=== PATIENT | female | born 1935 | race Caucasian/White ===

== ENCOUNTER → 2017-01-22 | Outpatient (CLI) | payer OTHER, MEDICARE ==
[~2017-01-22] MED LIST: AMOX500T3 PO; ASPI325T39 PO; BIOT1CAP8 PO; BISA-16 PO; BISA1TAB15 RE; CALTRATE 600+D PO; CARB25TA12 PO; CLB/200 PO; CLON1TAB3 PO; CLOTCRE33 TOP; DESM0.2T2 PO; DOMPERIDONE 20 MG PO; ESTR1CRE PV; HYDR12.55 PO; LINA1CAP2 PO; LOPE-5 PO; LVNIS30 SQ; MRLP17 PO; MULTTAB58 PO; NYST80OI TOP; OMEP20CA9 PO; ONDA8TAB62 SL; POLY1DRO OPB; RALO60TA12 PO; SERT50TA PO; SIME1CHW12 PO; TRET0.023 TOP; WHEAPOW13 PO; ZNT/150 PO; ZOLP10TA PO
[2017-01-22 10:00] LABS: BLOOD UREA NITROGEN 17 mg/dl (7-18); BUN/CREATININE RATIO 19.3 (10-20); CALCIUM 8.5 mg/dl (8.5-10.1); CARBON DIOXIDE 25 mmol/L (21-32); CHLORIDE 111 mmol/L (98-107); GLUCOSE 74 mg/dl (70-99); POTASSIUM 4.5 mmol/L (3.5-5.1); SODIUM 143 mmol/L (136-145)
== END ==
LOC: C.LABFOXAN 09:09
PROVIDERS: ATTEND Internal Medicine
DX: E87.6 Hypokalemia (principal)

== ENCOUNTER → 2017-05-27 | Outpatient (CLI) | payer OTHER, MEDICARE ==
[~2017-05-27] MED LIST changes: -RALO60TA12 PO; +RALO60TA30 PO
[2017-05-27 09:18] LABS: BLOOD UREA NITROGEN 23 mg/dl (7-18); BUN/CREATININE RATIO 22.6 (10-20); CALCIUM 8.5 mg/dl (8.5-10.1); CARBON DIOXIDE 22 mmol/L (21-32); CHLORIDE 112 mmol/L (98-107); GLUCOSE 75 mg/dl (70-99); POTASSIUM 4.7 mmol/L (3.5-5.1); SODIUM 143 mmol/L (136-145)
== END ==
LOC: C.LABFOXAN 08:43
PROVIDERS: ATTEND Internal Medicine
DX: E87.6 Hypokalemia (principal)

== ENCOUNTER → 2017-08-16 | Outpatient (CLI) | payer OTHER, MEDICARE ==
[~2017-08-16] MED LIST changes: +DESM0.2T17 PO; -DESM0.2T2 PO
[2017-08-16 08:46] LABS: HEMATOCRIT 36.1 % (37-47); HEMOGLOBIN 11.7 g/dL (12.0-16.0); MEAN CELL VOLUME 98.9 fL (80-100); MEAN CORPUSCULAR HEMOGLOBIN 32.1 pg (25-34); MEAN CORPUSCULAR HGB CONC 32.4 g/dl (32-36); MEAN PLATELET VOLUME 10.1 fL (7.4-10.4); PLATELET COUNT 186 K/uL (130-400); RED CELL DISTRIBUTION WIDTH CV 13.8 % (11.5-14.5); RED CELL DISTRIBUTION WIDTH SD 49.4 fL (36.4-46.3); WHITE BLOOD COUNT 6.15 K/uL (4.8-10.8)
[2017-08-16 08:52] LABS: BLOOD UREA NITROGEN 19 mg/dl (7-18); CALCIUM 8.4 mg/dl (8.5-10.1); CARBON DIOXIDE 25 mmol/L (21-32); CREATININE 0.94 mg/dl (0.60-1.20); GLUCOSE 79 mg/dl (70-99); POTASSIUM 4.4 mmol/L (3.5-5.1); SODIUM 142 mmol/L (136-145)
== END ==
LOC: C.LABFOXAN 08:12
PROVIDERS: ATTEND Internal Medicine
DX: R06.02 Shortness of breath (principal)

== ENCOUNTER → 2017-09-20 | Outpatient (CLI) | payer OTHER, MEDICARE ==
[2017-09-20 08:37] LABS: BLOOD UREA NITROGEN 24 mg/dl (7-18); CALCIUM 8.5 mg/dl (8.5-10.1); CARBON DIOXIDE 22 mmol/L (21-32); CREATININE 1.03 mg/dl (0.60-1.20); GLUCOSE 85 mg/dl (70-99); POTASSIUM 4.5 mmol/L (3.5-5.1); SODIUM 143 mmol/L (136-145)
== END | disposition home or self-care (01) ==
LOC: C.LABFOXAN 07:34
PROVIDERS: ATTEND Internal Medicine
DX: E87.6 Hypokalemia (principal)

== ENCOUNTER → 2017-10-07 | Outpatient (CLI) | payer OTHER, MEDICARE ==
[2017-10-07 15:28] LABS: BASO % 0.3 %; BASO ABS # 0.02 K/uL (0-0.2); EOS % 1.9 %; EOS ABS # 0.12 K/uL (0-0.5); HEMATOCRIT 39.9 % (37-47); IG# 0.01 K/uL (0.00-0.02); LYMPH % 26.5 %; LYMPH ABS # 1.64 K/uL (1.2-3.4); MEAN CELL VOLUME 98.3 fL (80-100); MEAN CORPUSCULAR HGB CONC 32.6 g/dl (32-36); MEAN PLATELET VOLUME 10.7 fL (7.4-10.4); MONO % 9.5 %; MONO ABS # 0.59 K/uL (0.11-0.59); NEUT % 61.6 %; NEUT ABS # 3.81 K/uL (1.4-6.5); PLATELET COUNT 173 K/uL (130-400); RED CELL DISTRIBUTION WIDTH CV 13.8 % (11.5-14.5); RED CELL DISTRIBUTION WIDTH SD 49.4 fL (36.4-46.3); WHITE BLOOD COUNT 6.19 K/uL (4.8-10.8)
[2017-10-07 15:40] LABS: BLOOD UREA NITROGEN 21 mg/dl (7-18); CALCIUM 8.3 mg/dl (8.5-10.1); CARBON DIOXIDE 23 mmol/L (21-32); CREATININE 1.13 mg/dl (0.60-1.20); GLUCOSE 75 mg/dl (70-99); POTASSIUM 4.4 mmol/L (3.5-5.1); SODIUM 144 mmol/L (136-145)
== END ==
LOC: C.LABFOXAN 14:46
PROVIDERS: ATTEND Internal Medicine
DX: R53.81 Other malaise (principal)

== ENCOUNTER 2017-11-05 10:07 | Inpatient (IN) | payer OTHER, MEDICARE ==
[~2017-11-05] VITALS: Ht 165.1 cm; Wt 74.6 kg
--- NOTE | 2017-11-05 10:28 | EMERGENCY ROOM VISIT NOTE ---
History Report prepared by John: Clayton Jessica Under the Supervision of: Dr. Alex Lin M.D. First contact with patient: 10:12 Chief Complaint: HYPOTENSION Stated Complaint: SYNCOPE History of Present Illness The patient is an 82 year old female who presents to the Emergency Room from [facility] with concerns over hypotensive blood pressure readings. The patient's significant other at bedside states that he was called at 0930 when the hypotensive pressures were noticed. He notes that the patient is normally more conversive than she currently is. Nursing staff notes that [facility] states that she was unusually weak today, and incontinent of her urine. Source of History: spouse/significant other Onset: 0930, 1 hour ago Position: other (Generalized) Quality: other (Weakness) Associated Symptoms: + urinary symptoms (incontinent of urine. ) Note: Patient's notes that she is normally more conversive. Review of Systems See HPI for pertinent positives & negatives. A total of 10 systems reviewed and were otherwise negative. Past Medical & Surgical Medical Problems: (1) Benign hypertension (2) Bronchitis (3) Gastroparesis (4) Heart murmur (5) Osteoarthritis (6) Parkinson's disease (7) UTI (urinary tract infection) Family History Omitted secondary to age. Social History Smoking Status: Never Smoker Alcohol Use: none Drug Use: none Marital Status: Housing Status: assisted living Occupation Status: retired Current/Historical Medications Scheduled Amoxicillin (Amoxil), 500 MG PO UD Bisacodyl (Dulcolax), 5 MG PO Q2D Buspirone HCl (Buspirone HCl), 15 MG PO DAILY Buspirone Hcl (Buspirone Hcl), 7.5 MG PO QAM Carbidopa/Levodopa (Sinemet 25MG/100MG), 1 TAB PO TID Clonazepam (Klonopin), 0.5 MG PO TID Clonazepam (Klonopin), 0.25 MG PO DAILY Entacapone (Comtan), 100 MG PO QID Estrogens, Conjugated (Premarin), 1 APPLN HS Gabapentin (Neurontin), 200 MG PO TID Eqvbkmsc-Yfoywoufqfdf-Bcqhmyha (Artificial Tears), 1 APPLN OPB HS Linaclotide (Linzess), 290 MCG PO QAM Lisinopril (Zestril), 2.5 MG PO QPM Melatonin (Melatonin Maximum Strengt), 10 MG PO HS Mirtazapine Soltab (Remeron Soltab), 30 MG PO HS Polyethylene Glycol-Propylene (Systane Ultra), 1 DROPS OPB QID Potassium Chloride (Micro-K Ext Rel), 20 MEQ PO BID Raloxifene Hcl (Evista), 60 MG PO DAILY Ranitidine Hcl (Zantac), 150 MG PO BID Sennosides (Senexon), 8.6 MG PO BID Venlafaxine Hcl (Venlafaxine Hcl Er), 225 MG PO QAM White Petrolatum-Mineral Oil (Genteal Tears Night-Time), 1 APPLN OPB HS Zolpidem Tartrate (Ambien), 2.5 MG PO HS Scheduled PRN Acetaminophen (Tylenol), 500 MG PO QID PRN for Pain Bisacodyl (Dulcolax), 1 SUPP ME Q2D PRN for Constipation Magnesium Hydroxide (Milk of Magnesia 400 mg/5Ml), 30 ML PO Q2D PRN for Constipation Oxycodone Hcl (Oxycodone Hcl), 5 MG PO Q4 PRN for Pain Polyethylene Glycol 3350 (Miralax), 17 GM PO Q24H PRN for Constipation Ropinirole (Requip), 0.25 MG PO HS PRN for restless legs Sodium Phosphate/Biphosphate (Fleet Enema), 1 EA ME DAILY PRN for Constipation Allergies Coded Allergies: Amantadine (Verified Allergy, Intermediate, NEURO COMPLICATIONS, 09/12/13) Trihexyphenidyl (Verified Adverse Reaction, Mild, NAUSEA, 11/04/10) Promethazine (Verified Adverse Reaction, Unknown, MENTAL STATUS CHANGE, 11/04/10) Physical Exam Vital Signs Date Time Temp Pulse Resp B/P (MAP) Pulse Ox O2 Delivery O2 Flow Rate FiO2 11/05/17 12:46 65 19 115/74 97 Room Air 11/05/17 11:04 61 18 107/59 96 Nasal Cannula 3.0 11/05/17 10:47 59 108/55 60 100/60 11/05/17 10:31 93 Nasal Cannula 3.0 11/05/17 10:19 92 Room Air 11/05/17 10:19 36.4 62 20 102/49 88 Room Air 11/05/17 10:18 62 Physical Exam GENERAL: Awake, well-appearing, in no acute distress HENT: Normocephalic, atraumatic. Oropharynx unremarkable. EYES: Normal conjunctiva. Sclera non-icteric. NECK: Supple. No nuchal rigidity. FROM. No JVD. RESPIRATORY: Clear to auscultation. CARDIAC: Regular rate, normal rhythm. Extremities warm and well perfused. Pulses equal. ABDOMEN: Soft, non-distended. No tenderness to palpation. No rebound or guarding. No masses. RECTAL: Deferred. MUSCULOSKELETAL: Chest examination reveals no tenderness. The back is symmetrical on inspection without obvious abnormality. There is no CVA tenderness to palpation. No joint edema. LOWER EXTREMITIES: Calves are equal size bilaterally and non-tender. No edema. No discoloration. NEURO: Normal sensorium. No sensory or motor deficits noted. SKIN: No rash or jaundice noted. Medical Decision & Procedures ER Provider Diagnostic Interpretation: Radiology results as stated below per my review and radiologist interpretation: (CHEST FOR PE) ANGIO WITH CT DOSE: 241.78 mGy.cm HISTORY: 82 years-old Female with . Acute hypoxia and hypotension with shortness of breath TECHNIQUE: Multiple CTA images of the chest were obtained after the intravenous administration of 93 ml Optiray 320. Coronal and sagittal MIPS were obtained from the axial data set and were submitted for review. A dose lowering technique was utilized adhering to the principles of ALARA. COMPARISON: Chest radiograph of same day FINDINGS: CTA: Mild multichamber cardiac enlargement. Thoracic aorta is normal in course and caliber without aneurysm or dissection. The imaged great vessels appear patent. The left vertebral artery emanates strictly from the aortic arch. Moderate atherosclerosis of the aorta. The pulmonary arterial tree is opacified to level of the subsegmental branches and demonstrates no focal filling defects to suggest pulmonary thromboembolic disease. CT CHEST: Mildly heterogeneous thyroid without dominant nodule. Prominent lower right hilar lymph nodes measure up to 8 mm in short axis, likely physiologic. No bulky lymph nodes by CT size criteria. No pneumothorax or pleural effusion. Dependent groundglass and subsegmental consolidative opacities, right greater the left suggest atelectasis. Moderate bilateral bronchial wall thickening is noted with mild intralobular septal thickening throughout the right upper lobe. Subsegmental pleural-parenchymal scarring/atelectasis of the basal right lower lobe. There are no suspicious pulmonary nodules or masses identified. Central airways appear patent. Evaluation of the lungs is limited secondary to respiratory motion. Hepatic steatosis. No acute process of the imaged upper abdomen. Soft tissues are unremarkable. Anterior fusion changes of the lower cervical spine. Levoscoliosis of the thoracic spine with multilevel intervertebral disc space narrowing, endplate spurring and facet arthrosis. IMPRESSION: 1. No acute aortic pathology or evidence of pulmonary thromboembolic disease. 2. Mild intralobular septal thickening throughout the right upper lobe may reflect mild asymmetric pulmonary edema. Moderate bronchial wall thickening suggests congestive changes or bronchitis. 3. Subsegmental bibasilar atelectasis without focal airspace consolidation to suggest pneumonia. 4. Hepatic steatosis. The above report was generated using voice recognition software. It may contain grammatical, syntax or spelling errors. Electronically signed by: Hudson Virgen M.D. 11/05/2017 12:43 PM Dictated Date/Time: 11/05/2017 12:35 PM CHEST ONE VIEW PORTABLE CLINICAL HISTORY: 82 years-old Female presenting with Pt c/o SOB. TECHNIQUE: Portable upright AP view of the chest was obtained. COMPARISON: 09/12/2013. FINDINGS: The patient is slightly [place] rotated. Allowing for this, atherosclerosis and prominence of the thoracic aorta. Cardiac silhouette top normal in size. Mild elevation of the bilateral hemidiaphragms. No focal opacity. No large effusion or pneumothorax. Osseous structures normal. Foreign body projects over the epigastrium, likely external to the patient. IMPRESSION: 1. No acute cardiopulmonary disease. Electronically signed by: Brigido Dey M.D. 11/05/2017 11:01 AM Dictated Date/Time: 11/05/2017 11:00 AM HEAD WITHOUT CONTRAST (CT) CLINICAL HISTORY: 82 years-old Female with Pt c/o AMS. Acute altered mental status with syncope TECHNIQUE: Multiple axial CT images of the head were obtained without contrast. A dose lowering technique was utilized adhering to the principles of ALARA. CT DOSE: 537.48 mGy.cm COMPARISON: CT head 09/12/2013. FINDINGS: No acute intracranial hemorrhage, midline shift, intracranial mass, hydrocephalus, territorial ischemia or abnormal extra-axial collection. Mild atrophy with mild chronic microvascular ischemic changes. Senescent calcifications of the basal ganglia. The calvarium is intact. Mastoid air cells and middle ear cavities are clear. Mild mucosal thickening about the maxillary and ethmoid sinuses. Soft tissues and orbits are unremarkable. Prior bilateral cataract repair. IMPRESSION: No acute intracranial abnormality. The above report was generated using voice recognition software. It may contain grammatical, syntax or spelling errors. Electronically signed by: Hudson Virgen M.D. 11/05/2017 11:29 AM Dictated Date/Time: 11/05/2017 11:22 AM Laboratory Results 11/05/17 10:50 Red Blood Count 3.61, Mean Corpuscular Volume 97.2, Mean Corpuscular Hemoglobin 31.9, Mean Corpuscular Hemoglobin Concent 32.8, Mean Platelet Volume 10.2, Neutrophils (%) (Auto) 71.5, Lymphocytes (%) (Auto) 19.2, Monocytes (%) (Auto) 6.9, Eosinophils (%) (Auto) 1.8, Basophils (%) (Auto) 0.4, Neutrophils # (Auto) 3.91, Lymphocytes # (Auto) 1.05, Monocytes # (Auto) 0.38, Eosinophils # (Auto) 0.10, Basophils # (Auto) 0.02 11/05/17 10:50 Test 11/05/17 10:50 11/05/17 11:55 11/05/17 13:50 White Blood Count 5.47 K/uL (4.8-10.8) Red Blood Count 3.61 M/uL (4.2-5.4) Hemoglobin 11.5 g/dL (12.0-16.0) Hematocrit 35.1 % (37-47) Mean Corpuscular Volume 97.2 fL (80-100) Mean Corpuscular Hemoglobin 31.9 pg (25-34) Mean Corpuscular Hemoglobin Concent 32.8 g/dl (32-36) Platelet Count 132 K/uL (130-400) Mean Platelet Volume 10.2 fL (7.4-10.4) Neutrophils (%) (Auto) 71.5 % Lymphocytes (%) (Auto) 19.2 % Monocytes (%) (Auto) 6.9 % Eosinophils (%) (Auto) 1.8 % Basophils (%) (Auto) 0.4 % Neutrophils # (Auto) 3.91 K/uL (1.4-6.5) Lymphocytes # (Auto) 1.05 K/uL (1.2-3.4) Monocytes # (Auto) 0.38 K/uL (0.11-0.59) Eosinophils # (Auto) 0.10 K/uL (0-0.5) Basophils # (Auto) 0.02 K/uL (0-0.2) RDW Standard Deviation 50.1 fL (36.4-46.3) RDW Coefficient of Variation 14.0 % (11.5-14.5) Immature Granulocyte % (Auto) 0.2 % Immature Granulocyte # (Auto) 0.01 K/uL (0.00-0.02) D-Dimer 560 ug/L FEU (0-500) Anion Gap 6.0 mmol/L (3-11) Est Creatinine Clear Calc Drug Dose 41.5 ml/min Estimated GFR () 56.0 Estimated GFR (Non- 48.3 BUN/Creatinine Ratio 19.9 (10-20) Calcium Level 7.6 mg/dl (8.5-10.1) Total Bilirubin 0.3 mg/dl (0.2-1) Direct Bilirubin < 0.1 mg/dl (0-0.2) Aspartate Amino Transf (AST/SGOT) 15 U/L (15-37) Alanine Aminotransferase (ALT/SGPT) 7 U/L (12-78) Alkaline Phosphatase 98 U/L (45-117) Total Creatine Kinase 42 U/L (26-192) Creatine Kinase MB 1.1 ng/ml (0.5-3.6) Creatine Kinase MB Ratio 2.6 (0-3.0) Troponin I < 0.015 ng/ml (0-0.045) Total Protein 5.3 gm/dl (6.4-8.2) Albumin 2.8 gm/dl (3.4-5.0) Thyroid Stimulating Hormone (TSH) 2.440 uIu/ml (0.300-4.500) Urine Color DK YELLOW Urine Appearance CLOUDY (CLEAR) Urine pH 5.5 (4.5-7.5) Urine Specific [place] 1.019 (1.000-1.030) Urine Protein NEG (NEG) Urine Glucose (UA) NEG (NEG) Urine Ketones NEG (NEG) Urine Occult Blood NEG (NEG) Urine Nitrite NEG (NEG) Urine Bilirubin NEG (NEG) Urine Urobilinogen NEG (NEG) Urine Leukocyte Esterase TRACE (NEG) Urine WBC (Auto) 1-5 /hpf (0-5) Urine RBC (Auto) 0-4 /hpf (0-4) Urine Hyaline Casts (Auto) 1-5 /lpf (0-5) Urine Epithelial Cells (Auto) 0-5 /lpf (0-5) Urine Bacteria (Auto) 4+ (NEG) Labs reviewed by ED physician. Medications Administered Medications (Trade) Dose Ordered Sig/Omid Route Start Time Stop Time Status Last Admin Dose Admin Sodium Chloride 1,000 ml @ 999 mls/hr Q1H1M STAT IV 11/05/17 10:35 11/05/17 11:35 DC 11/05/17 11:00 999 MLS/HR Albuterol Sulfate (Ventolin 0.083% 2.5MG/3ML Neb) 2.5 mg NOW STAT INH 11/05/17 11:39 11/05/17 11:40 DC 11/05/17 12:51 2.5 MG Albuterol Sulfate (Ventolin 0.083% 2.5MG/3ML Neb) 2.5 mg NOW STAT INH 11/05/17 11:39 11/05/17 11:40 DC 11/05/17 12:52 2.5 MG Albuterol Sulfate (Ventolin 0.083% 2.5MG/3ML Neb) 2.5 mg NOW STAT INH 11/05/17 12:43 11/05/17 12:44 DC 11/05/17 13:30 2.5 MG Sodium Chloride 1,000 ml @ 999 mls/hr Q1H1M STAT IV 11/05/17 12:45 11/05/17 13:50 DC 11/05/17 11:00 999 MLS/HR Methylprednisolone Sodium Succinate (Solu-Medrol IV) 60 mg NOW STAT IV 11/05/17 12:59 11/05/17 13:00 DC 11/05/17 13:30 60 MG ECG Per My Interpretation Indication: weakness, other (Hypotension) Rate (beats per minute): 61 Rhythm: sinus rhythm Findings: 1st degree AV block, other (No WILBERT/STD) ED Course 1021: Past medical records reviewed. The patient was evaluated in room B5. A complete history and physical examination was performed. 1035: Ordered Sodium Chloride 1000 mL @ 999 mL/hr IV. 1139: Ordered Albuterol Sulfate 2.5 mg INH, Albuterol Sulfate 2.5 mg INH. 1243: Ordered Albuterol Sulfate 2.5 mg INH. 1245: Ordered Sodium Chloride 1000 mL @ 999 mL/hr IV. 1259: Solu-Medrol 60 mg IV. 1321: I discussed the case with [facility]. She will evaluate the patient for further treatment. Medical Decision Differential diagnosis: Etiologies such as metabolic, infection, hypo/hyperglycemia, electrolyte abnormalities, cardiac sources, intracerebral event, toxicologic, neurologic, as well as others were entertained. This is an 82-year-old female who presents the emergency department complaining of hypotension as well as hypoxia. The patient was sent in by her halfway. Upon arrival to the emergency department the patient is hypotensive. She was given a normal saline bolus. Because of both the hypotension and the hypoxia and d-dimer was obtained. This was elevated so therefore the patient was sent for CAT scan of the chest. This did not show any evidence of a PE. She was given multiple breathing treatments here in the emergency department along with Solu-Medrol. Because the patient continued to need oxygen and remained hypotensive I did discuss the case with the hospitalist service who agreed to admit the patient. Patient and family were in agreement with the treatment plan. Medication Reconcilliation Current Medication List: was personally reviewed by me Blood Pressure Screening Patient's blood pressure: Low blood pressure Referred to hospitalist. Consults Time Called: 1256 Consulting Physician: Juliette West PA-C Returned Call: 1321 I discussed the case with Juliette West PA-C. She will evaluate the patient for further treatment. Impression Primary Impression: Hypotension Additional Impression: Hypoxia Scribe Attestation The scribe's documentation has been prepared under my direction and personally reviewed by me in its entirety. I confirm that the note above accurately reflects all work, treatment, procedures, and medical decision making performed by me. Departure Information Dispostion Being Evaluated By Hospitalist Referrals Ana Edwards (PCP) Patient Instructions My [facility] Problem Qualifiers Primary Impression: Hypotension Hypotension type: unspecified hypotension type Qualified Codes: I95.9 - Hypotension, unspecified
[2017-11-05] MEDS ORDERED: SODIUM CHLORIDE 0.9% 1000ML 1,000 ML IV STA ×2 (10:35→12:45)
--- NOTE | 2017-11-05 11:02 | DIAGNOSTIC IMAGING REPORT ---
CHEST ONE VIEW PORTABLE CLINICAL HISTORY: 82 years-old Female presenting with Pt c/o SOB. TECHNIQUE: Portable upright AP view of the chest was obtained. COMPARISON: 09/12/2013. FINDINGS: The patient is slightly [place] rotated. Allowing for this, atherosclerosis and prominence of the thoracic aorta. Cardiac silhouette top normal in size. Mild elevation of the bilateral hemidiaphragms. No focal opacity. No large effusion or pneumothorax. Osseous structures normal. Foreign body projects over the epigastrium, likely external to the patient. IMPRESSION: 1. No acute cardiopulmonary disease. Electronically signed by: Brigido Dey M.D. 11/05/2017 11:01 AM Dictated Date/Time: 11/05/2017 11:00 AM
[2017-11-05 11:21] LABS: BASO % 0.4 %; BASO ABS # 0.02 K/uL (0-0.2); EOS % 1.8 %; HEMATOCRIT 35.1 % (37-47); HEMOGLOBIN 11.5 g/dL (12.0-16.0); IG# 0.01 K/uL (0.00-0.02); LYMPH % 19.2 %; LYMPH ABS # 1.05 K/uL (1.2-3.4); MEAN CELL VOLUME 97.2 fL (80-100); MEAN CORPUSCULAR HEMOGLOBIN 31.9 pg (25-34); MEAN CORPUSCULAR HGB CONC 32.8 g/dl (32-36); MEAN PLATELET VOLUME 10.2 fL (7.4-10.4); MONO % 6.9 %; MONO ABS # 0.38 K/uL (0.11-0.59); NEUT % 71.5 %; NEUT ABS # 3.91 K/uL (1.4-6.5); PLATELET COUNT 132 K/uL (130-400); RED CELL DISTRIBUTION WIDTH SD 50.1 fL (36.4-46.3); WHITE BLOOD COUNT 5.47 K/uL (4.8-10.8)
--- NOTE | 2017-11-05 11:30 | DIAGNOSTIC IMAGING REPORT ---
HEAD WITHOUT CONTRAST (CT) CLINICAL HISTORY: 82 years-old Female with Pt c/o AMS. Acute altered mental status with syncope TECHNIQUE: Multiple axial CT images of the head were obtained without contrast. A dose lowering technique was utilized adhering to the principles of ALARA. CT DOSE: 537.48 mGy.cm COMPARISON: CT head 09/12/2013. FINDINGS: No acute intracranial hemorrhage, midline shift, intracranial mass, hydrocephalus, territorial ischemia or abnormal extra-axial collection. Mild atrophy with mild chronic microvascular ischemic changes. Senescent calcifications of the basal ganglia. The calvarium is intact. Mastoid air cells and middle ear cavities are clear. Mild mucosal thickening about the maxillary and ethmoid sinuses. Soft tissues and orbits are unremarkable. Prior bilateral cataract repair. IMPRESSION: No acute intracranial abnormality. The above report was generated using voice recognition software. It may contain grammatical, syntax or spelling errors. Electronically signed by: Hudson Virgen M.D. 11/05/2017 11:29 AM Dictated Date/Time: 11/05/2017 11:22 AM
[2017-11-05 11:39] LABS: ALBUMIN 2.8 gm/dl (3.4-5.0); ALT/SGPT 7 U/L (12-78); AST/SGOT 15 U/L (15-37); BLOOD UREA NITROGEN 21 mg/dl (7-18); CALCIUM 7.6 mg/dl (8.5-10.1); CARBON DIOXIDE 23 mmol/L (21-32); CREATININE 1.07 mg/dl (0.60-1.20); GLUCOSE 93 mg/dl (70-99); SODIUM 145 mmol/L (136-145)
[2017-11-05] MEDS ORDERED: ALBUTEROL 0.083% NEBU SOLN 3 ML VIAL INH STA ×3 (11:39→12:43)
[2017-11-05] MEDS ORDERED: OPTIRAY 320 IV PRN (11:45)
[2017-11-05 11:49] LABS: ALKALINE PHOSPHATASE 98 U/L (45-117); CKMB 1.1 ng/ml (0.5-3.6); TOTAL PROTEIN 5.3 gm/dl (6.4-8.2)
[2017-11-05] MEDS ORDERED: WHITOIN3 OPB (12:40)
[2017-11-05] MEDS ORDERED: MIRT30TA2 PO (12:40)
[2017-11-05] MEDS ORDERED: VENL225T27 PO (12:40)
[2017-11-05] MEDS ORDERED: ACET-1256 PO (12:40)
[2017-11-05] MEDS ORDERED: ZOLP5TAB PO (12:40)
[2017-11-05] MEDS ORDERED: PRMVC (12:40)
[2017-11-05] MEDS ORDERED: BSP15 PO (12:40)
[2017-11-05] MEDS ORDERED: GLYCDRO6 OPB (12:40)
[2017-11-05] MEDS ORDERED: MAGNSUS73 PO (12:40)
[2017-11-05] MEDS ORDERED: CLON0.5T3 PO (12:40)
[2017-11-05] MEDS ORDERED: BISA-16 PO (12:40)
[2017-11-05] MEDS ORDERED: SODIENE PR (12:40)
[2017-11-05] MEDS ORDERED: ROPI0.25 PO (12:40)
[2017-11-05] MEDS ORDERED: GABA100C13 PO (12:40)
[2017-11-05] MEDS ORDERED: SENN8.6T9 PO (12:40)
[2017-11-05] MEDS ORDERED: BISA10SU38 PR (12:40)
[2017-11-05] MEDS ORDERED: OXYC1CAP5 PO (12:40)
[2017-11-05] MEDS ORDERED: LISI-789 PO (12:40)
[2017-11-05] MEDS ORDERED: POTA10CA28 PO (12:40)
[2017-11-05] MEDS ORDERED: MELATAB2 PO (12:40)
[2017-11-05] MEDS ORDERED: POLY335019 PO (12:40)
[2017-11-05] MEDS ORDERED: ENTA200T PO (12:40)
[2017-11-05] MEDS ORDERED: POLY1SOL6 OPB (12:40)
[2017-11-05] MEDS ORDERED: CARB25TA12 PO (12:40)
[2017-11-05] MEDS ORDERED: BUSP1TAB46 PO (12:40)
--- NOTE | 2017-11-05 12:44 | DIAGNOSTIC IMAGING REPORT ---
(CHEST FOR PE) ANGIO WITH CT DOSE: 241.78 mGy.cm HISTORY: 82 years-old Female with . Acute hypoxia and hypotension with shortness of breath TECHNIQUE: Multiple CTA images of the chest were obtained after the intravenous administration of 93 ml Optiray 320. Coronal and sagittal MIPS were obtained from the axial data set and were submitted for review. A dose lowering technique was utilized adhering to the principles of ALARA. COMPARISON: Chest radiograph of same day FINDINGS: CTA: Mild multichamber cardiac enlargement. Thoracic aorta is normal in course and caliber without aneurysm or dissection. The imaged great vessels appear patent. The left vertebral artery emanates strictly from the aortic arch. Moderate atherosclerosis of the aorta. The pulmonary arterial tree is opacified to level of the subsegmental branches and demonstrates no focal filling defects to suggest pulmonary thromboembolic disease. CT CHEST: Mildly heterogeneous thyroid without dominant nodule. Prominent lower right hilar lymph nodes measure up to 8 mm in short axis, likely physiologic. No bulky lymph nodes by CT size criteria. No pneumothorax or pleural effusion. Dependent groundglass and subsegmental consolidative opacities, right greater the left suggest atelectasis. Moderate bilateral bronchial wall thickening is noted with mild intralobular septal thickening throughout the right upper lobe. Subsegmental pleural-parenchymal scarring/atelectasis of the basal right lower lobe. There are no suspicious pulmonary nodules or masses identified. Central airways appear patent. Evaluation of the lungs is limited secondary to respiratory motion. Hepatic steatosis. No acute process of the imaged upper abdomen. Soft tissues are unremarkable. Anterior fusion changes of the lower cervical spine. Levoscoliosis of the thoracic spine with multilevel intervertebral disc space narrowing, endplate spurring and facet arthrosis. IMPRESSION: 1. No acute aortic pathology or evidence of pulmonary thromboembolic disease. 2. Mild intralobular septal thickening throughout the right upper lobe may reflect mild asymmetric pulmonary edema. Moderate bronchial wall thickening suggests congestive changes or bronchitis. 3. Subsegmental bibasilar atelectasis without focal airspace consolidation to suggest pneumonia. 4. Hepatic steatosis. The above report was generated using voice recognition software. It may contain grammatical, syntax or spelling errors. Electronically signed by: Hudson Virgen M.D. 11/05/2017 12:43 PM Dictated Date/Time: 11/05/2017 12:35 PM
[2017-11-05] MEDS ORDERED: METHYLPREDNISOLONE 125 MG VIAL IV STA (12:59)
[2017-11-05] MEDS ORDERED: ROPINIROLE HCL 0.25 MG TAB PO PRN (13:45)
[2017-11-05] MEDS ORDERED: ACETAMINOPHEN 325 MG TAB PO PRN (13:45)
[2017-11-05] MEDS ORDERED: OXYCODONE HCL IR 5 MG TAB (IMMEDIATE RELEASE) PO PRN (13:45)
[2017-11-05] MEDS ORDERED: ONDANSETRON INJ 2 MG/ML 2 ML VIAL IV PRN (13:45)
[2017-11-05] MEDS ORDERED: ALUMINUM/MAGNESIUM/SIMETH (MAALOX MAX) 30 ML UDC PO PRN (13:45)
[2017-11-05] MEDS ORDERED: MAGNESIUM HYDROXIDE SUSP 30 ML UDC PO PRN (13:45)
[2017-11-05] MEDS ORDERED: POLYETHYLENE (MIRALAX) 17 GM PACK PO PRN (13:45)
[2017-11-05] MEDS ORDERED: ALBUTEROL 0.083% NEBU SOLN 3 ML VIAL INH PRN (14:00)
[2017-11-05] MEDS ORDERED: CLONAZEPAM 0.5 MG TAB PO SCH (14:00)
[2017-11-05] MEDS ORDERED: CARBIDOPA/LEVODOPA 25/100MG TAB PO ONE (14:05)
--- NOTE | 2017-11-05 14:14 | History and Physical ---
History & Physical Date & Time of Service: November 05, 2017 at 14:00 Chief Complaint: Syncope Primary Care Physician: Fabián Martínez M.D. History of Present Illness Source: patient Ms. Renee is an 82 y/o female with PMHx of HTN, Parkinson's Disease, IBS-C, GERD, and Anxiety/Depression who presents to the ED for hypotension. Patient is a resident of [facility]. Per records and ED staff, it is reported [facility] staff attempted to assist patient out of bed when she was incontinent of stool and slid down. When they checked her BP it was 71/30. [facility] staff noting she was also incontinent of urine and unusually weaker today. However, patient is adamant that she is her baseline and feels that she doesn't need to be here. Patient is alert but lethargic but is past due on her afternoon Sinemet which is likely factoring into presentation here. She doesn't think she had her AM Sinemet either. She states she has the bradykinesia of parkinson's but normally doesn't have a tremor however does have a jaw tremor at this time. CT suggests possible bronchitis but she states she has chronic SOB that has not worsened. She denies cough or wheezing. She may have an element of restrictive lung disease given her parkinson's? UA suggests UTI and patient states her urine is darker than normal but no urinary symptoms. Her BP is improving with fluid resuscitation but she is unsure of her baseline. Given the report that her BP dropped with position changes this may be autonomic dysfunction given her parkinson's however she does appear dry on examination. Past Medical/Surgical History Medical Problems: (1) Avascular necrosis of bone of hip (2) Avascular necrosis of bone of hip (3) Benign hypertension (4) Bronchitis (5) Contusion of multiple sites (6) DJD (degenerative joint disease) of hip (7) Fall (8) Gastroparesis (9) Heart murmur (10) Osteoarthritis (11) Parkinson's disease (12) UTI (urinary tract infection) Family History Leukemia MOTHER, Myocardial Infarction FATHER, Social History Smoking Status: Former Smoker Smokeless Tobacco Use: No Alcohol Use: none Drug Use: none Marital Status: Housing status: assisted living ([facility]) Occupational Status: retired Immunizations History of Influenza Vaccine: Yes Influenza Vaccine Date: Apr 15, 2007 History of Tetanus Vaccine?: Yes Tetanus Immunization Date: Jul 26, 2008 History of Pneumococcal: Yes Pneumococcal Date: November 28, 2001 History of Hepatitis B Vaccine: No Allergies Coded Allergies: Amantadine (Verified Allergy, Intermediate, NEURO COMPLICATIONS, 09/12/13) Trihexyphenidyl (Verified Adverse Reaction, Mild, NAUSEA, 11/04/10) Promethazine (Verified Adverse Reaction, Unknown, MENTAL STATUS CHANGE, 11/04/10) Home Medications Scheduled Amoxicillin (Amoxil), 500 MG PO UD Bisacodyl (Dulcolax), 5 MG PO Q2D Buspirone HCl (Buspirone HCl), 15 MG PO DAILY Buspirone Hcl (Buspirone Hcl), 7.5 MG PO QAM Carbidopa/Levodopa (Sinemet 25MG/100MG), 1 TAB PO TID Clonazepam (Klonopin), 0.5 MG PO TID Clonazepam (Klonopin), 0.25 MG PO DAILY Entacapone (Comtan), 100 MG PO QID Estrogens, Conjugated (Premarin), 1 APPLN HS Gabapentin (Neurontin), 200 MG PO TID Vdwgrwoj-Julgrofkqemv-Wtkxbhax (Artificial Tears), 1 APPLN OPB HS Linaclotide (Linzess), 290 MCG PO QAM Lisinopril (Zestril), 2.5 MG PO QPM Melatonin (Melatonin Maximum Strengt), 10 MG PO HS Mirtazapine Soltab (Remeron Soltab), 30 MG PO HS Polyethylene Glycol-Propylene (Systane Ultra), 1 DROPS OPB QID Potassium Chloride (Micro-K Ext Rel), 20 MEQ PO BID Raloxifene Hcl (Evista), 60 MG PO DAILY Ranitidine Hcl (Zantac), 150 MG PO BID Sennosides (Senexon), 8.6 MG PO BID Venlafaxine Hcl (Venlafaxine Hcl Er), 225 MG PO QAM White Petrolatum-Mineral Oil (Genteal Tears Night-Time), 1 APPLN OPB HS Zolpidem Tartrate (Ambien), 2.5 MG PO HS Scheduled PRN Acetaminophen (Tylenol), 500 MG PO QID PRN for Pain Bisacodyl (Dulcolax), 1 SUPP [place] Q2D PRN for Constipation Magnesium Hydroxide (Milk of Magnesia 400 mg/5Ml), 30 ML PO Q2D PRN for Constipation Oxycodone Hcl (Oxycodone Hcl), 5 MG PO Q4 PRN for Pain Polyethylene Glycol 3350 (Miralax), 17 GM PO Q24H PRN for Constipation Ropinirole (Requip), 0.25 MG PO HS PRN for restless legs Sodium Phosphate/Biphosphate (Fleet Enema), 1 EA NJ DAILY PRN for Constipation Review of Systems Constitutional: + fatigue (chronic), No fever, No chills ENT: No nasal symptoms, No sore throat Respiratory: + shortness of breath (chronic - baseline), No cough Cardiovascular: No chest pain, No orthopnea Abdomen: No pain, No nausea, No vomiting, No diarrhea, No constipation Musculoskeletal: No swelling, No calf pain Genitourinary - Female: + urinary incontinence, No dysuria Hematologic / Lymphatic: No abnormal bleeding/bruising Physical Exam Vital Signs Date Time Temp Pulse Resp B/P (MAP) Pulse Ox O2 Delivery O2 Flow Rate FiO2 11/05/17 12:46 65 19 115/74 97 Room Air 11/05/17 11:04 61 18 107/59 96 Nasal Cannula 3.0 11/05/17 10:47 59 108/55 60 100/60 11/05/17 10:31 93 Nasal Cannula 3.0 11/05/17 10:19 92 Room Air 11/05/17 10:19 36.4 62 20 102/49 88 Room Air 11/05/17 10:18 62 General Appearance: no apparent distress Head: normocephalic, atraumatic Eyes: sclerae normal ENT: hearing grossly normal, + pertinent finding (dry oral mucosa) Neck: supple, no JVD, trachea midline Respiratory/Chest: lungs clear, normal breath sounds, no respiratory distress, no accessory muscle use Cardiovascular: regular rate, rhythm, no gallop, no murmur Abdomen/GI: normal bowel sounds, non tender, soft Extremities/Musculoskelatal: no calf tenderness, no pedal edema Neurologic/Psych: alert, oriented x 3, + pertinent finding (mild cogwheeling of b/l upper extremities; equal strength of hands and arms but reduced; ) Skin: normal color, warm/dry Diagnostics Laboratory Results Results Past 24 Hours Test 11/05/17 10:50 11/05/17 11:55 Range/Units White Blood Count 5.47 4.8-10.8 K/uL Red Blood Count 3.61 4.2-5.4 M/uL Hemoglobin 11.5 12.0-16.0 g/dL Hematocrit 35.1 37-47 % Mean Corpuscular Volume 97.2 80-100 fL Mean Corpuscular Hemoglobin 31.9 25-34 pg Mean Corpuscular Hemoglobin Concent 32.8 32-36 g/dl Platelet Count 132 130-400 K/uL Mean Platelet Volume 10.2 7.4-10.4 fL Neutrophils (%) (Auto) 71.5 % Lymphocytes (%) (Auto) 19.2 % Monocytes (%) (Auto) 6.9 % Eosinophils (%) (Auto) 1.8 % Basophils (%) (Auto) 0.4 % Neutrophils # (Auto) 3.91 1.4-6.5 K/uL Lymphocytes # (Auto) 1.05 1.2-3.4 K/uL Monocytes # (Auto) 0.38 0.11-0.59 K/uL Eosinophils # (Auto) 0.10 0-0.5 K/uL Basophils # (Auto) 0.02 0-0.2 K/uL RDW Standard Deviation 50.1 36.4-46.3 fL RDW Coefficient of Variation 14.0 11.5-14.5 % Immature Granulocyte % (Auto) 0.2 % Immature Granulocyte # (Auto) 0.01 0.00-0.02 K/uL D-Dimer 560 0-500 ug/L FEU Sodium Level 145 136-145 mmol/L Potassium Level 4.0 3.5-5.1 mmol/L Chloride Level 116 98-107 mmol/L Carbon Dioxide Level 23 21-32 mmol/L Anion Gap 6.0 3-11 mmol/L Blood Urea Nitrogen 21 7-18 mg/dl Creatinine 1.07 0.60-1.20 mg/dl Est Creatinine Clear Calc Drug Dose 41.5 ml/min Estimated GFR () 56.0 Estimated GFR (Non- 48.3 BUN/Creatinine Ratio 19.9 10-20 Random Glucose 93 70-99 mg/dl Calcium Level 7.6 8.5-10.1 mg/dl Total Bilirubin 0.3 0.2-1 mg/dl Direct Bilirubin < 0.1 0-0.2 mg/dl Aspartate Amino Transf (AST/SGOT) 15 15-37 U/L Alanine Aminotransferase (ALT/SGPT) 7 12-78 U/L Alkaline Phosphatase 98 45-117 U/L Total Creatine Kinase 42 26-192 U/L Creatine Kinase MB 1.1 0.5-3.6 ng/ml Creatine Kinase MB Ratio 2.6 0-3.0 Troponin I < 0.015 0-0.045 ng/ml Total Protein 5.3 6.4-8.2 gm/dl Albumin 2.8 3.4-5.0 gm/dl Thyroid Stimulating Hormone (TSH) 2.440 0.300-4.500 uIu/ml Urine Color DK YELLOW Urine Appearance CLOUDY CLEAR Urine pH 5.5 4.5-7.5 Urine Specific [place] 1.019 1.000-1.030 Urine Protein NEG NEG Urine Glucose (UA) NEG NEG Urine Ketones NEG NEG Urine Occult Blood NEG NEG Urine Nitrite NEG NEG Urine Bilirubin NEG NEG Urine Urobilinogen NEG NEG Urine Leukocyte Esterase TRACE NEG Urine WBC (Auto) 1-5 0-5 /hpf Urine RBC (Auto) 0-4 0-4 /hpf Urine Hyaline Casts (Auto) 1-5 0-5 /lpf Urine Epithelial Cells (Auto) 0-5 0-5 /lpf Urine Bacteria (Auto) 4+ NEG Microbiology Results 11/05/17 Urine Culture, Received Pending Diagnostic Radiology (CHEST FOR PE) ANGIO WITH CT DOSE: 241.78 mGy.cm HISTORY: 82 years-old Female with . Acute hypoxia and hypotension with shortness of breath TECHNIQUE: Multiple CTA images of the chest were obtained after the intravenous administration of 93 ml Optiray 320. Coronal and sagittal MIPS were obtained from the axial data set and were submitted for review. A dose lowering technique was utilized adhering to the principles of ALARA. COMPARISON: Chest radiograph of same day FINDINGS: CTA: Mild multichamber cardiac enlargement. Thoracic aorta is normal in course and caliber without aneurysm or dissection. The imaged great vessels appear patent. The left vertebral artery emanates strictly from the aortic arch. Moderate atherosclerosis of the aorta. The pulmonary arterial tree is opacified to level of the subsegmental branches and demonstrates no focal filling defects to suggest pulmonary thromboembolic disease. CT CHEST: Mildly heterogeneous thyroid without dominant nodule. Prominent lower right hilar lymph nodes measure up to 8 mm in short axis, likely physiologic. No bulky lymph nodes by CT size criteria. No pneumothorax or pleural effusion. Dependent groundglass and subsegmental consolidative opacities, right greater the left suggest atelectasis. Moderate bilateral bronchial wall thickening is noted with mild intralobular septal thickening throughout the right upper lobe. Subsegmental pleural-parenchymal scarring/atelectasis of the basal right lower lobe. There are no suspicious pulmonary nodules or masses identified. Central airways appear patent. Evaluation of the lungs is limited secondary to respiratory motion. Hepatic steatosis. No acute process of the imaged upper abdomen. Soft tissues are unremarkable. Anterior fusion changes of the lower cervical spine. Levoscoliosis of the thoracic spine with multilevel intervertebral disc space narrowing, endplate spurring and facet arthrosis. IMPRESSION: 1. No acute aortic pathology or evidence of pulmonary thromboembolic disease. 2. Mild intralobular septal thickening throughout the right upper lobe may reflect mild asymmetric pulmonary edema. Moderate bronchial wall thickening suggests congestive changes or bronchitis. 3. Subsegmental bibasilar atelectasis without focal airspace consolidation to suggest pneumonia. 4. Hepatic steatosis. HEAD WITHOUT CONTRAST (CT) CLINICAL HISTORY: 82 years-old Female with Pt c/o AMS. Acute altered mental status with syncope TECHNIQUE: Multiple axial CT images of the head were obtained without contrast. A dose lowering technique was utilized adhering to the principles of ALARA. CT DOSE: 537.48 mGy.cm COMPARISON: CT head 09/12/2013. FINDINGS: No acute intracranial hemorrhage, midline shift, intracranial mass, hydrocephalus, territorial ischemia or abnormal extra-axial collection. Mild atrophy with mild chronic microvascular ischemic changes. Senescent calcifications of the basal ganglia. The calvarium is intact. Mastoid air cells and middle ear cavities are clear. Mild mucosal thickening about the maxillary and ethmoid sinuses. Soft tissues and orbits are unremarkable. Prior bilateral cataract repair. IMPRESSION: No acute intracranial abnormality. EKG Sinus rhythm with 1st degree A-V block Otherwise normal ECG When compared with ECG of 12-SEP-2013 08:56, NJ interval has increased Impression Assessment and Plan Ms. Renee is an 82 y/o female with PMHx of HTN, Parkinson's Disease, IBS-C, GERD, and Anxiety/Depression who presents to the ED for hypotension. Hypotension: Possible Autonomic Dysfunction vs Dehydration - Responded with fluid resuscitation and does appear dry on examination - continue NSS at 75 mL/hr - Continue Methylprednisolone 40 mg IV Q8H Possible Metabolic Encephalopathy 2/2 UTI vs Parkinson's - Unsure of baseline as no family at bedside - [facility] staff reported she is more lethargic then normal but seems to be experiencing some parkinsonism signs and did not have Sinemet yet today Urinary Tract Infection: - Upon chart review it appears that she may have this recurrently however no helpful previous cx in system - Rocephin 1 g IV daily and await Cx Bronchitis? - Possible findings on CTA but may be atelectic given wheelchair bound and advanced parkinsons - Steroids as above and Albuterol nebs PRN H/O Possible Paroxysmal Atrial Flutter vs Artifact: - Chart reviewed suggesting possible flutter but may be related to tremor - will admit on telemetry for rhythm monitoring to explain current presentation Parkinson's: - Wheelchair bound - Sinement 1 tab TID - give dose now since doses missed today; Gabapentin 200 mg TID; Requip 0.25 mg HS PRN - Comtan 100 mg QID; Remeron 30 mg HS Depression/Anxiety: - Buspar 15 mg daily; Klonopin; Venlafaxine 225 mg daily DVT Prophylaxis: Heparin Code Status: FULL RESUSCITATION Disposition: PT/OT - patient is wheelchair bound - Resident of [facility] Resident Physician Supervision Note: I was present with Dale NAGY during the history and exam. I discussed the case with the PA and agree with the findings and plan as documented in the note. Any exceptions or clarifications are listed here: 82 y/o F HTN, Parkinson's Disease, depression - was notably weak at [facility] and also reportedly incontinent of stool and urine. She is lethargic on admission but contends that this is her baseline and she does not need to be in the hospital. It was reported however that due to her weakness, her BP was checked and is recorded at 71/50 prior to arrival in the ER. Initial labs are notable for a (+) UA. OE AAO x 2 S1,2 R CTAB NT, ND No CCE Neuro exam does show rigidity consistent with Parkinson without additional deficits P: We will treat for UTI, provide IVF and resume her Parkinson meds Hypotension was not confirmed in ER and may be transient related to autonomic dysfunction Cont Buspar as scheduled for depression/anxiety Documented By: Gregory Duffy Resuscitation Status VTE Prophylaxis Will order VTE Prophylaxis: Yes
[2017-11-05 14:48] LABS: INFLUENZA B ANTIGEN Neg for Influ B (NEG)
[2017-11-05 16:30] VITALS: BP 161/103; PULSE 79; TEMP 36.4; O2SAT 91
[2017-11-05] MEDS: SODIUM CHLORIDE 0.9% 1000ML 1,000 ML IV SCH (17:55)
[2017-11-05] MEDS: POTASSIUM CHLORIDE 10 MEQ TABCR PO SCH (17:59)
[2017-11-05] MEDS ORDERED: CEFTRIAXONE SOD INJ 1 GM in DEXTROSE 5% ADD-VANTAGE 50ML 50 ML IV SCH (18:00)
[2017-11-05 18:01] VITALS: BP 161/103; PULSE 79; TEMP 36.4; O2SAT 91; Ht 165.1 cm; Wt 74.6 kg
[2017-11-05 18:25] LABS: PTT PATIENT 27.5 SECONDS (21.0-31.0)
[2017-11-05 19:07] VITALS: BP 115/80; PULSE 86; O2SAT 96
[2017-11-05] MEDS ORDERED: CARB25TA14 PO (20:28)
[2017-11-05] MEDS ORDERED: ARTIFICIAL TEARS OP SOLN OPB SCH (21:00)
[2017-11-05] MEDS ORDERED: MIRTAZAPINE SOLTAB 15 MG PO SCH (21:00)
[2017-11-05] MEDS ORDERED: CARBIDOPA/LEVODOPA 25/100MG TAB PO SCH (21:00)
[2017-11-05] MEDS ORDERED: PREMARIN VAG CRM 14 APPLN/30 GM TUBE PV SCH (21:00)
[2017-11-05] MEDS ORDERED: ZOLPIDEM TARTRATE 5 MG TAB PO SCH (21:00)
[2017-11-05] MEDS: RANITIDINE HCL 150 MG TAB PO SCH (21:25)
[2017-11-05] MEDS: SENNA 8.6 MG TAB PO SCH (21:25)
[2017-11-05] MEDS: METHYLPREDNISOLONE IV 40 MG in SYRINGE 0 ML IV SCH (21:26)
[2017-11-05] MEDS: ENTACAPONE PO SCH (21:26)
[2017-11-05] MEDS: CLONAZEPAM 0.5 MG TAB PO SCH (21:27)
[2017-11-05] MEDS: CARBIDOPA/LEVODOPA 25/100MG TAB PO SCH (21:28)
[2017-11-05] MEDS: GABAPENTIN 100 MG CAP PO SCH (21:29)
[2017-11-05] MEDS: HEPARIN SOD 5000 UNIT/0.5 ML CARP SQ SCH (21:40)
[2017-11-05 23:40] VITALS: BP 170/87; PULSE 90; TEMP 36.3; O2SAT 94
[2017-11-06 04:00] VITALS: BP 173/96; PULSE 84; TEMP 37; O2SAT 91
[2017-11-06] MEDS: METHYLPREDNISOLONE IV 40 MG in SYRINGE 0 ML IV SCH ×2 (06:13→14:11)
[2017-11-06] MEDS: SODIUM CHLORIDE 0.9% 1000ML 1,000 ML IV SCH (06:13)
[2017-11-06 06:28] LABS: HEMATOCRIT 40.8 % (37-47); HEMOGLOBIN 13.7 g/dL (12.0-16.0); MEAN CELL VOLUME 94.4 fL (80-100); MEAN CORPUSCULAR HEMOGLOBIN 31.7 pg (25-34); MEAN CORPUSCULAR HGB CONC 33.6 g/dl (32-36); MEAN PLATELET VOLUME 10.3 fL (7.4-10.4); PLATELET COUNT 163 K/uL (130-400); RED CELL DISTRIBUTION WIDTH CV 13.5 % (11.5-14.5); RED CELL DISTRIBUTION WIDTH SD 46.4 fL (36.4-46.3); WHITE BLOOD COUNT 8.72 K/uL (4.8-10.8)
[2017-11-06 07:00] LABS: CALCIUM 8.1 mg/dl (8.5-10.1); CREATININE 1.07 mg/dl (0.60-1.20); POTASSIUM 4.6 mmol/L (3.5-5.1)
[2017-11-06] MEDS ORDERED: CARBIDOPA/LEVODOPA 25-250 1 EA TAB PO SCH (07:00)
[2017-11-06] MEDS ORDERED: BusPIRone 15 MG TAB PO SCH ×4 (07:00→16:00)
[2017-11-06 07:31] VITALS: BP 164/77; PULSE 86; TEMP 37; O2SAT 93
[2017-11-06 08:01] VITALS: O2SAT 93
[2017-11-06] MEDS ORDERED: CLONAZEPAM 0.5 MG TAB PO SCH ×2 (09:00→12:00)
[2017-11-06] MEDS ORDERED: VENLAFAXINE HCL XR 75 MG CAPXR PO SCH (09:00)
[2017-11-06] MEDS ORDERED: RALOXIFENE 60 MG TAB PO SCH (09:00)
[2017-11-06] MEDS ORDERED: BISACODYL 5 MG TABEC PO SCH (09:00)
[2017-11-06] MEDS: ENTACAPONE PO SCH ×2 (09:05→12:13)
[2017-11-06] MEDS: SENNA 8.6 MG TAB PO SCH (09:06)
[2017-11-06] MEDS: POTASSIUM CHLORIDE 10 MEQ TABCR PO SCH (09:07)
[2017-11-06] MEDS: RANITIDINE HCL 150 MG TAB PO SCH (09:07)
[2017-11-06] MEDS: GABAPENTIN 100 MG CAP PO SCH ×2 (09:08→14:11)
[2017-11-06] MEDS: HEPARIN SOD 5000 UNIT/0.5 ML CARP SQ SCH (09:10)
[2017-11-06] MEDS: CLONAZEPAM 0.5 MG TAB PO SCH (09:12)
[2017-11-06 11:21] VITALS: BP 158/85; PULSE 82; TEMP 36.7; O2SAT 92
[2017-11-06 12:01] VITALS: O2SAT 93
[2017-11-06] MEDS: CARBIDOPA/LEVODOPA 25/100MG TAB PO SCH (12:12)
[2017-11-06] MEDS ORDERED: CIPR1TAB11 PO (12:30)
[2017-11-06] MEDS ORDERED: ALBINS INH (12:30)
[2017-11-06] MEDS ORDERED: PRD20 PO (12:30)
[2017-11-06] MEDS ORDERED: CLON0.5T3 PO (12:35)
[2017-11-06] MEDS ORDERED: OXYC1CAP5 PO (12:35)
[2017-11-06] MEDS ORDERED: CLON1TAB3 PO (12:35)
--- NOTE | 2017-11-06 12:39 | Discharge Instructions ---
Discharge Instructions Date of Service November 06, 2017. Admission Reason for Admission: UTI, hypotension Discharge Discharge Diagnosis / Problem: UTI, hypotension Discharge Goals Goal(s): Improve disease control, Diagnostic testing, Therapeutic intervention Activity Recommendations Activity Level: Assistance Required Therapies: Physical Therapy, Occupational Therapy Shower/Bathe: no limitations . Additional Information Patient informed of condition: Yes Advance Directives: Yes DNR: No Level of Care: Skilled Communicable Disease: No Prognosis: Stable Flores Catheter: No Instructions / Follow-Up Instructions / Follow-Up You were admitted for weakness, low blood pressure and a UTI. You were treated with antibiotics and had improvement in your symptoms. Your urine culture was still pending at the time of discharge and should be followed up on by Dr. Martínez tomorrow. You will be sent out on an antibiotic for 6 more days. Current Hospital Diet Patient's current hospital diet: Regular Diet Discharge Diet Recommended Diet: Regular Diet Procedures Procedures Performed: Chest CT CXR CT Head Pending Studies Studies pending at discharge: yes List of pending studies: Urine culture result Physician Orders On Transfer POL Discussion: Not Applicable Medical Emergencies . Who to Call and When: Medical Emergencies: If at any time you feel your situation is an emergency, please call 911 immediately. . Non-Emergent Contact Non-Emergency issues call your: Primary Care Provider Call Non-Emergent contact if: temperature is above 101, you have any medication questions . . "Provider Documentation" section prepared by Annmarie Carey. . Core Measure Problem Core Measures: None [place] Drug Monitoring Program Search Results: patient reviewed within database, no issues identified
--- NOTE | 2017-11-06 12:59 | Discharge Summary ---
Discharge Summary Date of Service November 06, 2017. Discharge Summary Admission Date: November 05, 2017 at 13:52 Discharge Date: November 06, 2017 Discharge Disposition: [facility] facility Principal Diagnosis: UTI, hypotension Problems/Secondary Diagnoses: HTN Parkinson's Disease IBS-C GERD Anxiety/Depression Dyspnea, chronic cough Acute Metabolic Encephalopathy History of Possible Paroxysmal Atrial Flutter vs Artifact Ambulatory dysfunction Autonomic dysfunction Osteoporosis RLS Immunizations: Have You Had Influenza Vaccine: Yes Influenza Vaccine Date: Apr 15, 2007 History of Tetanus Vaccine?: Yes Tetanus Immunization Date: Jul 26, 2008 History of Pneumococcal: Yes Pneumococcal Date: November 28, 2001 History of Hepatitis B Vaccine: No Procedures: CTA Chest CXR CT Head Consultations: None Medication Reconciliation New Medications: Ciprofloxacin Tab (Cipro) 250 Mg Tab 250 MG PO BID for 6 Days, #12 TAB Prednisone (Prednisone) 20 Mg Tab 20 MG PO DAILY for 5 Days, #5 TAB Albuterol Sulf (Albuterol Sulfate) 2.5 Mg/3 Ml Nebu 2.5 MG INH Q4H PRN for SOB/Wheezing for 7 Days Continued Medications: Acetaminophen (Tylenol) 500 Mg Tab 500 MG PO QID PRN for Pain Amoxicillin (Amoxil) 500 Mg Tab 500 MG PO UD, TAB 1 HOUR PRIOR TO APPTS Bisacodyl (Dulcolax) 5 Mg Tab 5 MG PO Q2D Bisacodyl (Dulcolax) 10 Mg Sup 1 SUPP [place] Q2D PRN for Constipation Buspirone HCl (Buspirone HCl) 15 Mg Tab 15 MG PO DAILY@1600 AT 1600 Buspirone Hcl (Buspirone Hcl) 7.5 Mg Tab 7.5 MG PO QAM Carbidopa/Levodopa (Sinemet 25MG/100MG) Tab 1 TAB PO TID@1200,1700,2100 AT 1200, 1700, 2100 Carbidopa/Levodopa (Sinemet 25MG/250MG) Tab 1 TAB PO DAILY@0600, TAB Clonazepam (Klonopin) 1 Mg Tab 0.5 MG PO TID for 1 Day, #2 TAB (This prescription has been renewed) AT 0800, 1600, 2100 Clonazepam (Klonopin) 0.5 Mg Tab 0.25 MG PO DAILY for 1 Day, #1 TAB (This prescription has been renewed) AT NOON Entacapone (Comtan) 200 Mg Tab 100 MG PO QID With each dose of Sinemet Estrogens, Conjugated (Premarin) 14 Appln/30 Gm Cr 1 APPLN HS Gabapentin (Neurontin) 100 Mg Cap 200 MG PO TID Hxvhozdt-Htbudftfnozd-Mmwiviwg (Artificial Tears) 1 Rubén Rubén 1 APPLN OPB HS Linaclotide (Linzess) 290 Mcg Cap 290 MCG PO QAM Lisinopril (Zestril) 2.5 Mg Tab 2.5 MG PO QPM Magnesium Hydroxide (Milk of Magnesia 400 mg/5Ml) 1 Stefania Stefania 30 ML PO Q2D PRN for Constipation Melatonin (Melatonin Maximum Strengt) 5 Mg Tab 10 MG PO HS Mirtazapine Soltab (Remeron Soltab) 30 Mg Soltab 30 MG PO HS Oxycodone Hcl (Oxycodone Hcl) 5 Mg Cap 5 MG PO Q4 PRN for Pain for 1 Day, #6 TAB (This prescription has been renewed) Polyethylene Glycol 3350 (Miralax) 1 Pow Pow 17 GM PO Q24H PRN for Constipation Polyethylene Glycol-Propylene (Systane Ultra) 1 Marianne Marianne 1 DROPS OPB QID Potassium Chloride (Micro-K Ext Rel) 10 Meq Capcr 20 MEQ PO BID Raloxifene Hcl (Evista) 60 Mg Tab 60 MG PO DAILY, TAB Ranitidine Hcl (Zantac) 150 Mg Tab 150 MG PO BID, TAB Ropinirole (Requip) 0.25 Mg Tab 0.25 MG PO HS PRN for restless legs Sennosides (Senexon) 8.6 Mg Tab 8.6 MG PO BID Sodium Phosphate/Biphosphate (Fleet Enema) Briseida 1 EA [place] DAILY PRN for Constipation, BTL Venlafaxine Hcl (Venlafaxine Hcl Er) 225 Mg Tab 225 MG PO QAM White Petrolatum-Mineral Oil (Genteal Tears Night-Time) 1 Oin Oin 1 APPLN OPB HS Zolpidem Tartrate (Ambien) 5 Mg Tab 2.5 MG PO HS Discharge Exam Pt feeling better. BPs actually a bit elevated now after IVFs overnight. Deneis CP, SOB, no cough except chronic cough. No abd pain. Very anxious overnight and kept trying to get out of bed. Pt insists she would be better off back at home at [facility] and would like to be discharged. Tele with NSR with rates in the 80s-90s Review of Systems: Constitutional: No fever, No chills Eyes: No problem reported ENT: No problem reported Respiratory: + cough, No shortness of breath Cardiovascular: No chest pain Abdomen: No pain, No nausea, No vomiting Musculoskeletal: No problem reported Genitourinary - Female: + urinary incontinence Neurologic: + weakness (chronic) Psychiatric: + anxiety Endocrine: No problem reported Hematologic / Lymphatic: No problem reported Physical Exam: General Appearance: WD/WN, no apparent distress (but appears anxious) Eyes: normal inspection, EOMI, sclerae normal ENT: hearing grossly normal Neck: trachea midline Respiratory/Chest: lungs clear, normal breath sounds, no respiratory distress, no accessory muscle use Cardiovascular: regular rate, rhythm, no edema, no gallop, no murmur, normal peripheral pulses Abdomen / GI: normal bowel sounds, non tender, soft Extremities: no pedal edema Neurologic/Psychiatric: alert, oriented x 3, + depressed affect Skin: normal color, warm/dry, no rash Hospital Course Ms. Renee is an 82 y/o female with PMHx of HTN, Parkinson's Disease, IBS-C, GERD, and Anxiety/Depression who presents to the ED for hypotension. Hypotension: Possible Autonomic Dysfunction vs vasovagal response with ongoing UTI - Responded with fluid resuscitation and BPs normalized to elevated by the time of discharge Acute Metabolic Encephalopathy secondary to UTI-resolved Urinary Tract Infection: - Abnormal UA on admission along with weakness, hypotension-->would treat for true infection. No evidence of sepsis -received Rocephin -Urine culture with GNRs at time of discharge--> Ur cx should be followed up on by PCP to make sure sensitive to Cipro -finish out total 7 day course of Cipro Chronic Bronchitis-pt has long standing h/o cough. Did improve with bronchodilator snad steroids here - Possible findings on CTA but may be atelectatic given wheelchair bound and advanced parkinsons - Steroids course after discharge and continue Albuterol nebs PRN H/O Possible Paroxysmal Atrial Flutter vs Artifact: - Chart reviewed suggesting possible flutter but may be related to tremor - no events on telemetry Parkinson's Disease:stable - Wheelchair bound - continue home doses of Sinement - Comtan 100 mg QID; RLS-stable -continue Gabapentin 200 mg TID; Requip 0.25 mg HS PRN Depression/Anxiety:stable -continue Remeron, Buspar 15 mg daily; Klonopin; Venlafaxine 225 mg daily Stable for discharge back to [facility] Total Time Spent: Greater than 30 minutes This includes examination of the patient, discharge planning, medication reconciliation, and communication with other providers. Discharge Instructions Please refer to the electronic Patient Visit Report (Discharge Instructions) for additional information. Follow-Up With PCP within 1 day Needs to have Urine culture followed for final result on 11/07 Additional Copies To Fabián Martínez M.D.
[2017-11-06 13:59] VITALS: BP 158/85; PULSE 82; TEMP 36.7; O2SAT 93
--- NOTE | 2017-11-06 21:24 | Medical Student: [facility] ---
Med Student Progress Note Date of Service November 06, 2017. Subjective Pt evaluation today including: conversation w/ patient, physical exam Pain: None PO Intake: Adequate Voiding: no voiding problems Ms. Renee is an 82 year old female with a history of parkinson's disease, hypertension, anxiety/depression who presented after an episode of hypotension while transferring out of bed at her home at [facility]. She states this occurred shortly after waking up, so she was to sleepy to remember details of what happened. Report from staff at [facility] reveal that when she stood from her bed this morning, she was incontinent of bladder. They measured her blood pressure and it was found to be 71/30. Seeing this low blood pressure prompted them bring her to the hospital. While in the emergency department, she required supplemental oxygen and received a saline bolus where her status improved. She also received duonebs and methylprednisolone for her shortness of breath. The patient is somnolent with her at the bedside supporting additional information about her medical history. Today she says she is "too weak" to keep her eyes open to have a conversation with me. She states that she has been more short of breath lately, and this is worse when she is anxious. She is tearful when she shares that she is scared she has dementia because she "can't remember things as good as I used to." She confirms that she has been hydrating well, has had no diarrhea, or excessive sweating in the past few days. Review of Systems Constitutional: No fever, No chills Eyes: No worsening of vision ENT: + nasal symptoms, No sore throat Respiratory: + cough (from postnasal drip), + shortness of breath Cardiac: No chest pain Abdomen: No pain, No nausea, No vomiting, No diarrhea Female : No dysuria, No urinary frequency Neurologic: + weakness Psychiatric: + depression symptoms, + anxiety Heme: No abnormal bleeding/bruising Endo: + fatigue Skin: + problem reported ("dry") Objective Vital Signs Date Time Temp Pulse Resp B/P (MAP) Pulse Ox O2 Delivery O2 Flow Rate FiO2 11/06/17 13:59 36.7 82 18 93 Room Air 11/06/17 12:01 93 Room Air 11/06/17 11:21 36.7 82 18 158/85 (109) 92 Room Air 11/06/17 08:01 93 Room Air 11/06/17 07:31 37.0 86 18 164/77 (106) 93 Room Air 11/06/17 04:00 37.0 84 16 173/96 (121) 91 Room Air 11/06/17 04:00 Room Air 11/06/17 00:00 Room Air 11/05/17 23:40 36.3 90 18 170/87 (114) 94 Room Air Physical Exam General Appearance: + pertinent finding (somnolent, with resting tremor of both arms bilaterally and in her jaw) Respiratory/Chest: lungs clear, normal breath sounds, no respiratory distress Cardiovascular: regular rate, rhythm, no gallop Abdomen: normal bowel sounds, non tender, soft Extremities: normal inspection, no pedal edema Laboratory Results Last 24 Hours Test 11/06/17 06:16 White Blood Count 8.72 K/uL Red Blood Count 4.32 M/uL Hemoglobin 13.7 g/dL Hematocrit 40.8 % Mean Corpuscular Volume 94.4 fL Mean Corpuscular Hemoglobin 31.7 pg Mean Corpuscular Hemoglobin Concent 33.6 g/dl RDW Standard Deviation 46.4 fL RDW Coefficient of Variation 13.5 % Platelet Count 163 K/uL Mean Platelet Volume 10.3 fL Sodium Level 142 mmol/L Potassium Level 4.6 mmol/L Chloride Level 115 mmol/L Carbon Dioxide Level 22 mmol/L Anion Gap 5.0 mmol/L Blood Urea Nitrogen 19 mg/dl Creatinine 1.07 mg/dl Est Creatinine Clear Calc Drug Dose 41.0 ml/min Estimated GFR () 56.0 Estimated GFR (Non- 48.3 BUN/Creatinine Ratio 17.7 Random Glucose 125 mg/dl Calcium Level 8.1 mg/dl Magnesium Level 2.3 mg/dl Assessment and Plan Assessment and Plan: Ms. Renee is an 82 year old female with a history of parkinson's disease, hypertension, anxiety/depression who presented after an episode of hypotension while transferring, who is found to have UTI after positive UA. UTI with acute metabolic encephalopathy She presented with an episode of weakness and incontinence and was found to have 4+ bacteria, turbid urine, and trace leukocyte esterase on UA. She is afebrile and her white count is not elevated. Nursing reports episodes of delirium overnight. We are treating her with ceftriaxone with this until sensitivities return from urine culture. She is receiving normal saline at 75 ml /hour. Insomnia Continue Zolpidem Anxiety and Depression Continue buspirone, clonazepam, mirtazepine, and venlafaxine. Parkinson's Disease She is currently on carbidopa/levodopa but had apparently missed 1-2 doses of this yesterday. She is also on entacapone. She currently has a bilateral resting tremor in both of her arms and her jaw is tremulous as well. She is bradykinetic and wheelchair bound. As she follows up with her PCP or neurologist, we suggest looking into the possibility of Shy Drager syndrome. She has parkinsonism, insomnia, mood disturbance, ataxia? (wheel chair bound), and an episode of autonomic instability upon presentation. The hypotension may have been secondary to acute infection, or possibly a more chronic process such as Shy Drager Syndrome. Hypokalemia Continued KCl 20 meq BID. GERD Continue ranitidine IBS Currently constipation predominant. Senna and Mg hydroxide available PRN. PPX heparin currently. unable to ambulate DISPOSITION Currently admitted to medical floor. Pt feels better than yesterday, and she would feel more comfortable recovering from [facility] where there is a high amount of nursing support. We will discharge her to [facility]. Discharge planning: home with home health ([facility])
== END 2017-11-06 14:20 | DRG 689 ==
LOC: EDBD 10:07 → C.EDB 10:09 → C.MED 13:52 → ENRESERV 15:24
PROVIDERS: ADMIT Internal Medicine; ATTEND Family Medicine
DX: N39.0 Urinary tract infection, site not specified (principal); G93.41 Metabolic encephalopathy; I48.92 Unspecified atrial flutter; I95.9 Hypotension, unspecified; J42 Unspecified chronic bronchitis; G20 Parkinson's disease; G25.81 Restless legs syndrome; Z99.3 Dependence on wheelchair; F32.9 Major depressive disorder, single episode, unspecified; F41.9 Anxiety disorder, unspecified; I10 Essential (primary) hypertension; K58.1 Irritable bowel syndrome with constipation; K21.9 Gastro-esophageal reflux disease without esophagitis; Z87.891 Personal history of nicotine dependence; Z79.2 Long term (current) use of antibiotics; Z79.810 Long term (current) use of selective estrogen receptor modulators (SERMs); Z79.890 Hormone replacement therapy; Z79.899 Other long term (current) drug therapy; Z82.49 Family history of ischemic heart disease and other diseases of the circulatory system; Z80.6 Family history of leukemia

== ENCOUNTER → 2018-01-17 | Outpatient (CLI) | payer OTHER, MEDICARE ==
[~2018-01-17] MED LIST changes: +ACET-1256 PO; +ALBINS INH; -ASPI325T39 PO; -BIOT1CAP8 PO; +BISA10SU38 PR; -BISA1TAB15 RE; +BSP15 PO; +BUSP1TAB46 PO; -CALTRATE 600+D PO; +CARB25TA14 PO; -CLB/200 PO; +CLON0.5T9 PO; -CLON1TAB3 PO; +CLON1TAB4 PO; -CLOTCRE33 TOP; -DESM0.2T17 PO; -DOMPERIDONE 20 MG PO; +ENTA200T PO; -ESTR1CRE PV; +GABA-1693 PO; +GLYCDRO6 OPB; -HYDR12.55 PO; +LISI-789 PO; -LOPE-5 PO; -LVNIS30 SQ; +MAGNSUS73 PO; +MELATAB2 PO; +MIRT30TA2 PO; -MRLP17 PO; -MULTTAB58 PO; -NYST80OI TOP; -OMEP20CA9 PO; -ONDA8TAB62 SL; +OXYC1CAP5 PO; -POLY1DRO OPB; +POLY1SOL6 OPB; +POLY335019 PO; +POTA10CA28 PO; +PRD20 PO; +PRMVC; +ROPI0.25 PO; +SENN8.6T9 PO; -SERT50TA PO; -SIME1CHW12 PO; +SODIENE PR; -TRET0.023 TOP; +VENL225T27 PO; -WHEAPOW13 PO; +WHITOIN3 OPB; -ZOLP10TA PO; +ZOLP5TAB PO
[2018-01-17 08:54] LABS: BASO % 0.3 %; BASO ABS # 0.02 K/uL (0-0.2); EOS % 2.5 %; HEMATOCRIT 39.7 % (37-47); HEMOGLOBIN 12.5 g/dL (12.0-16.0); IG# 0.02 K/uL (0.00-0.02); LYMPH % 21.2 %; LYMPH ABS # 1.68 K/uL (1.2-3.4); MEAN CELL VOLUME 100.8 fL (80-100); MEAN CORPUSCULAR HEMOGLOBIN 31.7 pg (25-34); MEAN CORPUSCULAR HGB CONC 31.5 g/dl (32-36); MEAN PLATELET VOLUME 11.5 fL (7.4-10.4); MONO % 10.2 %; MONO ABS # 0.81 K/uL (0.11-0.59); NEUT % 65.5 %; NEUT ABS # 5.19 K/uL (1.4-6.5); PLATELET COUNT 155 K/uL (130-400); RED CELL DISTRIBUTION WIDTH CV 15.3 % (11.5-14.5); RED CELL DISTRIBUTION WIDTH SD 56.2 fL (36.4-46.3); WHITE BLOOD COUNT 7.92 K/uL (4.8-10.8)
[2018-01-17 09:15] LABS: ALBUMIN 3.1 gm/dl (3.4-5.0); ALKALINE PHOSPHATASE 98 U/L (45-117); ALT/SGPT 8 U/L (12-78); AST/SGOT 14 U/L (15-37); BLOOD UREA NITROGEN 28 mg/dl (7-18); CALCIUM 8.3 mg/dl (8.5-10.1); CARBON DIOXIDE 27 mmol/L (21-32); CREATININE 1.37 mg/dl (0.60-1.20); GLUCOSE 72 mg/dl (70-99); POTASSIUM 4.6 mmol/L (3.5-5.1); SODIUM 144 mmol/L (136-145)
== END ==
LOC: C.LABFOXAN 08:38
PROVIDERS: ATTEND Internal Medicine
DX: R41.82 Altered mental status, unspecified (principal)